=== PATIENT | male | born 1960 | race African-American/Black ===

== ENCOUNTER 2022-01-27 14:29 | Emergency (ER) | payer OTHER, MEDICAID ==
[~2022-01-27] VITALS: Ht 195.6 cm; Wt 148.0 kg
[2022-01-27] MEDS ORDERED: KETOROLAC 30MG/ML VIAL IV STA (15:32)
[2022-01-27] MEDS ORDERED: ONDANSETRON HCL 4MG/2ML INJ IV STA (15:32)
[2022-01-27] MEDS ORDERED: MORPHINE SULFATE 4 MG/ML CPJ (NOT FOR IM USE) IV STA (15:32)
[2022-01-27] MEDS ORDERED: SODIUM CHLORIDE 0.9% 1,000 ML IV ONE (15:45)
[2022-01-27 16:23] LABS: BASOPHILS % 0.7 % (0.0-2.0); EOSINOPHILS % 8.6 % (0.0-5.0); HEMATOCRIT. 45.5 % (42.0-52.0); HEMOGLOBIN. 15.2 g/dL (14.0-18.0); LYMPHOCYTES % 17.5 % (20.0-50.0); MEAN CORPUSCULAR HEMOGLOBIN 30.2 pg (28.0-32.0); MEAN CORPUSCULAR VOLUME 90.6 fL (80.0-94.0); MEAN PLATELET VOLUME 8.3 fl (7.4-10.4); MONOCYTES % 5.8 % (2.0-8.0); NEUTROPHILS % 67.4 % (40.0-76.0); PLATELET 160 x1000/uL (130-400); RED BLOOD CELL COUNT 5.02 mill/uL (4.7-6.1); RED CELL DISTRIBUTION WIDTH 13.3 % (11.6-14.6)
[2022-01-27 16:28] LABS: CHLORIDE 110 mEq/L (98-107)
[2022-01-27 19:06] VITALS: BP 140/82
== END 2022-01-27 23:00 | disposition short-term general hospital (02) ==
LOC: ER 14:29
DX: M25.551 Pain in right hip (principal); R26.2 Difficulty in walking, not elsewhere classified; W18.40XA Slipping, tripping and stumbling without falling, unspecified, initial encounter; Y93.89 Activity, other specified; Y92.89 Other specified places as the place of occurrence of the external cause; I50.9 Heart failure, unspecified; I48.91 Unspecified atrial fibrillation
CPT/HCPCS: 36415; 72192; 80053; 85025; 93005; 96361; 96374; 96375; 99285; J1885; J2270; J2405; J7030

== ENCOUNTER 2022-08-24 14:08 | Emergency (ER) | payer OTHER, MEDICAID ==
[~2022-08-24] VITALS: Ht 193 cm; Wt 158.0 kg
[2022-08-24] MEDS ORDERED: SODIUM CHLORIDE 0.9% 1000ML BAG (SEPSIS BOLUS) IV ONE (15:15)
[2022-08-24 15:32] LABS: BASOPHILS % 0.3 % (0.0-2.0); EOSINOPHILS % 2.4 % (0.0-5.0); HEMOGLOBIN. 15.5 g/dL (14.0-18.0); LYMPHOCYTES % 11.4 % (20.0-50.0); MEAN CORPUSCULAR HEMOGLOBIN 30.4 pg (28.0-32.0); MEAN CORPUSCULAR VOLUME 91.9 fL (80.0-94.0); MEAN PLATELET VOLUME 8.5 fl (7.4-10.4); MONOCYTES % 5.7 % (2.0-8.0); NEUTROPHILS % 80.2 % (40.0-76.0); PLATELET 165 x1000/uL (130-400); RED BLOOD CELL COUNT 5.11 mill/uL (4.7-6.1); RED CELL DISTRIBUTION WIDTH 13.4 % (11.6-14.6)
[2022-08-24 15:41] LABS: CHLORIDE 111 mEq/L (98-107)
[2022-08-24] MEDS ORDERED: ASPIRIN 81MG TABLET PO ONE (17:15)
[2022-08-24] MEDS ORDERED: CEFTRIAXONE 1GM PREMIX 50 ML IV ONE (17:15)
[2022-08-24 18:53] LABS: CLARITY URINE CLOUDY (CLEAR); COLOR URINE DARK YELLOW (YELLOW); KETONES URINE 1+ (NEGATIVE); LEUKOCYTE ESTERASE URINE TRACE (NEGATIVE); NITRITE URINE NEGATIVE (NEGATIVE); OCCULT BLOOD URINE NEGATIVE (NEGATIVE); PROTEIN URINE 2+ (NEGATIVE); SPECIFIC GRAVITY URINE 1.027 (1.005-1.030); UROBILINOGEN URINE 0.2 E.U./dL (0.2-1.0)
[2022-08-24 23:57] VITALS: BP 120/83
== END 2022-08-25 00:11 | disposition short-term general hospital (02) ==
LOC: ER 14:08 → CANBEDREQ 18:12 → MICUSO 22:34 → UNDOADMIN 22:34 → UNDODISIN 22:56
DX: A41.9 Sepsis, unspecified organism (principal); R65.20 Severe sepsis without septic shock; N39.0 Urinary tract infection, site not specified; R55 Syncope and collapse; I50.9 Heart failure, unspecified; Z20.822 Contact with and (suspected) exposure to COVID-19; I11.0 Hypertensive heart disease with heart failure; E11.9 Type 2 diabetes mellitus without complications
CPT/HCPCS: 36415; 71045; 80053; 81003; 82962; 83605; 84145; 84484; 85025; 87040; 87086; 87426; 93005; 96361; 96365; 96366; 99291; C9803; J0696; J7030